=== PATIENT | female | born 1955 | race American Indian/Alaskan Native ===

== ENCOUNTER 2017-10-14 09:27 | Day surgery (SDC) | payer BC ==
[2017-10-11 11:33] VITALS: BMI 22.6
[2017-10-14] MEDS ORDERED: Midazolam 2 MG/2 ML VIAL ONE (10:30)
--- NOTE | 2017-10-14 11:31 | CP.SDSHP ---
Same Day Surgery H & P - History Proposed Procedure: Ct guided biopsy of right lung nodule Pre-Op Diagnosis: Right lung nodule - Allergies Allergies: Allergies naproxen Allergy (Severe, Verified 10/11/17 11:28) ANAPHYLAXIS - Physical Exam Mental Status: Alert & Oriented x3 Neuro: WNL Heart: WNL Lungs: WNL GI: WNL - Impression Impression: Pt with 2 cm right lung nodule referred for CT guided biopsy. Informed consent obtained and risk of PTX, bleeding, infection explained to the patient. Plan CT guided core biopys of right lung nodule. Pt. Evaluated Today:Candidate for Anesthesia & Procedure: Yes (ASA 3 Malampati 3) Short Stay Discharge - Short Stay Discharge Admitting Diagnosis/Reason for Visit: LUNG NODULE Disposition: HOME/ ROUTINE
--- NOTE | 2017-10-14 11:34 | PCM.SURG1 ---
Surgeon's Initial Post Op Note - Surgeon's Notes Surgeon: Nj Ritchie MD Gore Seamer: NONE Type of Anesthesia: IV Sedation Pre-Operative Diagnosis: Right lung nodule Operative Findings: CT showed a 1.7 cm right lung nodule. Post-Operative Diagnosis: Right lung nodule Operation Performed: CT guided core biopsy Specimen/Specimens Removed: 20 g core x 2 Estimated Blood Loss: EBL {In ML}: 0 Blood Products Given: N/A Drains Used: No Drains Post-Op Condition: Fair Date of Surgery/Procedure: 10/14/17 Time of Surgery/Procedure: 11:30
--- NOTE | 2017-10-14 12:47 | CT ---
PROCEDURE: Date of procedure: 10/14/2017 Procedure: 1. CT-guided lung mass biopsy, CPT [address] Guidance for biopsy, [address] Radiation: 327.25 mGy-cm Medications: The patient was sedated by anesthesiologist along with physiologic monitoring. HISTORY: Right upper lobe lung nodule TECHNIQUE: Following informed consent, the Pt's chest was marked. The Pt was placed prone on the CT table and procedure time out was performed. A noncontrast CT scan was performed. Noncontrast CT scan confirmed the presence of a peripheral 1.7 cm cm nodule. A skin localizer was placed on the patient's right back and a repeat CT scan was performed. The skin was marked, prepped, and draped in the usual sterile fashion. After the skin was anesthetized with lidocaine and the patient sedated by the anesthesiologist, a 20 gauge core needle was advanced percutaneously under direct CT guidance into the mass. Upon confirmation of needle position, two 20-gauge core specimens were obtained and sent for routine pathology. The needle was removed and a xeroform dressing was applied. A post biopsy CT scan showed no pneumothorax. IMPRESSION: CT guided core biopsy right lung nodule.
--- NOTE | 2017-10-14 13:25 | RAD ---
PROCEDURE: CHEST RADIOGRAPH, 1 VIEW HISTORY: Status post right lung nodule biopsy COMPARISON: None available. FINDINGS: LUNGS: Lung nodule right lower lobe. PLEURA: No pneumothorax or pleural fluid seen. CARDIOVASCULAR: Normal. OSSEOUS STRUCTURES: No significant abnormalities. VISUALIZED UPPER ABDOMEN: Normal. OTHER FINDINGS: None. IMPRESSION: No pneumothorax following right lung nodule biopsy.
== END 2017-10-14 13:21 | disposition home or self-care (01) ==
LOC: C.SPRAD 09:27
PROVIDERS: ATTEND Radiology Vascular & Interventional Radiology
DX: C34.11 Malignant neoplasm of upper lobe, right bronchus or lung (principal)
CPT/HCPCS: 32405; 71045; 77012; 88305; 88342; 99156; J2250; J3010